=== PATIENT | female | born 1975 | race Caucasian/White ===

== ENCOUNTER 2024-06-23 11:52 | Outpatient (REF) | payer MEDICAID, SELFPAY ==
[2024-06-23 14:35] LABS: Ferritin 264 ng/mL (10-250)
[2024-06-23 14:46] LABS: Vitamin B12 1301 pg/mL (200-900)
[2024-06-24 03:59] LABS: HBS Num1 2.12 mIU/mL (0-7.99); HBc Num1 0.14 S/CO (0.00-0.79); HBsAGNum1 0.47 S/CO (0.00-0.99); Hepatitis A Antibody IgM 0.65 Index (0-0.79); Hepatitis B Core Antibody Nonreactive (Nonreactive); Hepatitis B Surface Antigen Negative (Negative); ~HepC Num1 0.12 S/CO (0.00-0.79); ~Hepatitis A Antibody IgM Nonreactive (Nonreactive); ~Hepatitis B Surface Antibody NONREACTIVE (Nonreactive); ~Hepatitis C Antibody Nonreactive (Nonreactive)
[2024-06-27 19:39] LABS: Transglutaminase Ab IgG <1.0 U/mL
[2024-06-28 03:09] LABS: Zinc 77 mcg/dL (60-130)
[2024-06-29 06:23] LABS: Vitamin A 69 mcg/dL (38-98)
[2024-06-30 12:42] LABS: Vitamin C 1.2 mg/dL (0.3-2.7)
[2024-06-30 16:04] LABS: Vitamin B1 11 nmol/L (8-30)
[2024-07-01 16:39] LABS: Vitamin B6 22.1 ng/mL (2.1-21.7)
[2024-07-01 16:44] LABS: Vitamin B5 (Pantothenic Acid) <=40 ng/mL (<275)
[2024-07-02 15:47] LABS: Nicotinamide <20 ng/mL (see note); Vit B3 - Nicotinic Acid <20 ng/mL (see note)
[2024-07-03 14:44] LABS: Hu Antibody Screen, IFA Serum NEGATIVE (NEGATIVE); Yo Antibody, Serum Screen NEGATIVE (NEGATIVE)
== END 2024-06-23 11:53 | disposition home or self-care (01) ==
LOC: HO.LAB 11:52
PROVIDERS: PCP Internal Medicine; Visit Provider Internal Medicine Gastroenterology
DX: K31.84 Gastroparesis (principal); G89.29 Other chronic pain; R10.33 Periumbilical pain
CPT/HCPCS: 36415; 82180; 82306; 82607; 82728; 82746; 84181; 84207; 84425; 84590; 84591; 84630; 86255; 86256; 86364; 86704; 86706; 86709; 86803; 87340

== ENCOUNTER 2024-06-23 11:52 | Outpatient (AMB) | payer OTHER, SELFPAY ==
[2024-06-23 11:58] VITALS: BP 106/54; PULSE 92; BMI 24.1
--- NOTE | 2024-06-23 11:58 | MHC.OFFVIS ---
Vital Signs 06/23/24 11:58 Height 5 ft 7 in Weight 153 lb 14.122 oz BMI 24.1 BP 106/54 L Blood Pressure Location Lt brachial Position Sitting Pulse 92 Intake Visit Reasons: Abnormally delayed gastric emptying/ GERD Intake Note: Patient in office today for GERD. CC: Patient states that it took her a year to get in here (GI). Per patient everything began with a cough but she went to community services coordinator and she was cleared from any lung issues. Per patient she burps a lot and it smells like there is something rotten. She also reports an abnormal gastric emptying scan, and an aborted EGD because her stomach was full of food. She has tried multiples medications without success. Allergies No Known Drug Allergies Allergy (Unknown, Verified 06/23/24 12:04) none HPI HPI Abnormally delayed gastric emptying/ GERD: Details: HPI 48 yr old f here for assessment She has hx of metastatic breast cancer--had prior XRT, mastectomy but then developed mets she has gastroparesis with GES pos 66% with EGD 12/23 with food retention she noted chronic cough which is worse in the morning she denies abdominal pain she denies blaoting, diarrhea, constipation weight went down a lot, gaining it again appetite is good tamoxifen fpc ROS: Constitutional : + Weight loss, No Fever, No Chills ENT/Mouth : No sore throat, No Rhinorrhea Eyes: No Swelling, No Redness Cardiovascular : No Chest Pain, No SOB, No Edema Respiratory : No Cough, No Sputum, No Wheezing Gastrointestinal : see HPI Genitourinary : NO Dysuria, No Urinary Frequency, No Hematuria, No Urgency Musculoskeletal : NO joint pain, No Myalgias, No Joint Swelling Skin : No Skin Lesions, No rash Neuro : No Weakness, No Numbness, No Dizziness, No Headache Psych : No Anxiety/Panic, No Depression Heme/Lymph: No Bruising, No Lymphadenopathy Endocrine : No Polyuria, No Polydipsia All other systems reviewed and are negative. 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 VITAL SIGNS:see workflow HEENT: Nonicteric sclerae, PERRLA, EOMI. Oropharynx clear. Moist mucous membranes. Conjunctivae appear well perfused. No thyroid mass. CHEST: Chest wall is nontender. HEART: Regular rate and rhythm without murmurs. LUNGS: Clear to auscultation bilaterally. ABDOMEN: Soft, positive bowel sounds, nontender, no organomegaly.no flank tenderness SKIN: No rash, no excessive bruising, petechiae, or purpura. NEUROLOGIC: Cranial nerves II-XII intact without motor/sensory deficit. Psych: normal affect A/P: 1/ Gastroparesis- prob 2/2 cancer PLAN: 1/ cont with mesopride from [facility] 2/ recommence PPI will try esomeprazole 40 mg and can titrate down over time 3/ check hep c and other labs incl nutrients, talked about gastroparesis diet 4/ EGD to exclude outlet obstruction and also will do pyloric dilation Physical Exam Vital Signs: BMI result Body Mass Index 24.1 Assessment & Plan Assessment & Plan (1) Gastroparesis: Code(s): - Gastroparesis Category: Medical Plan: see above Orders: Orders Ferritin Today K3 - Gastroparesis Vitamin B1 Today K3 - Gastroparesis Zinc Today K3 - Gastroparesis Yo Antibody Today K3. - Gastroparesis HU Antibody Today K3 - Gastroparesis Transglutaminase Ab IgG Today G89.29 - Other chronic pain, K3. - Gastroparesis, R10.33 - Periumbilical pain Vitamin B12 and Folate Today K3 - Gastroparesis Hepatitis A,B,C Profile Today K3 - Gastroparesis Vitamin D 25-OH Total Today K3 - Gastroparesis Vitamin A Today K384 - Gastroparesis Vitamin B3 (Niacin) Today K3 - Gastroparesis Vitamin B5 (Pantothenic Acid) Today K3 - Gastroparesis Vitamin B6 Today K3.84 - Gastroparesis Vitamin C Today K3.84 - Gastroparesis Medications: New esomeprazole magnesium 40 mg PO DAILY 90 caps 1RF Coding Level of Care Code New Pt Level 4 (58950) Diagnoses Gastroparesis K3
== END 2024-06-23 13:21 | disposition home or self-care (01) ==
PROVIDERS: PCP Internal Medicine; Visit Provider Internal Medicine Gastroenterology
DX: K31.84 Gastroparesis (principal)
CPT/HCPCS: 99204

== ENCOUNTER 2024-06-26 11:13 | Day surgery (SDC) | payer MEDICAID, SELFPAY ==
[2024-06-26] VITALS (7 sets, daily range): BP systolic 96–112; BP diastolic 48–70; PULSE 77–104; RESP 16–19; TEMP 36.9–37.4; O2SAT 99–100; BMI 24.0
--- NOTE | 2024-06-26 12:06 | MHC.SHP ---
Pre-Procedural Eval Section A - 24 Hr Update-Section A only Date of Service: 06/26/24 The patient is an INPATIENT: No The patient has been examined within 24 hours of the surgical procedure. The History & Physical has been completed within 30 days and I have reviewed it.: Yes Section B - Complete if H&P > 30 days Chief Complaint: Gastro-esophageal reflux disease without esophagit Allergies: Allergies Allergy/AdvReac Type Severity Reaction Status Date / Time No Known Drug Allergies Allergy Unknown none Verified 06/23/24 12:04 Plan I have reviewed the history and physical and performed a pertinent physical examination on my patient. No changes have occurred unless specified. Time Spent With Patient Time: Total time managing care of this patient today ____ minutes.
[2024-06-26 12:29] LABS: UPreg QC Valid YES; Urine Pregnancy NEGATIVE (NEGATIVE)
--- NOTE | 2024-06-26 12:32 | HO.ANESPROP2 ---
HPI - Anesthesia Eval Consult details Narrative: upper with dilatation PMFSH Active Problems Active Problems: All Active Problems Gastroparesis (Acute) Past Medical History Medical History delivery delivered Breast cancer metastasized to bone Family History Family history of problems with anesthesia: No Surgical History Surgical History Hx of right mastectomy History of Problems with Anesthesia: No Social History Social History Patient Tobacco Use Status: Current everyday Tobacco user Tobacco use type: Cigarette Cigarettes Per Day: 2 Use of substances other than those prescribed or required for medical reasons: No Are you DNR?: No Advance Directives: No Advance Directives Information Provided: Yes Meds Allergies Allergy/AdvReac Type Severity Reaction Status Date / Time No Known Drug Allergies Allergy Unknown none Verified 06/23/24 12:04 Home Medications ?Medication ?Instructions ?Recorded ?Confirmed ?Last Taken ?Type spironolactone 100 mg tablet 100 mg PO DAILY 06/23/24 06/26/24 Unknown History tamoxifen 10 mg tablet 10 mg PO DAILY 06/23/24 06/26/24 Unknown History Exam Height,Weight and Vital Signs: Height 5 ft 7 in Weight 69.4 kg Last Vital Signs Temp 99.4 F 06/26/24 12:16 Pulse 77 06/26/24 12:16 Resp 16 06/26/24 12:16 BP 103/70 06/26/24 12:16 Pulse Ox 100 06/26/24 12:16 O2 Del Method Room Air 06/26/24 12:16 Pertinent Lab Results Pertinent Lab Results: Laboratory Tests 06/26/24 12:00 Urine Test NEGATIVE Airway Mallampati Class: II TM Dist: >3cm Neck ROM: Full Heart: rrr Lungs: cta Assessment and Plan Assessment Anesthesia Assessment: Anesthesia Plan Discussed Final Anesthetic Review Family History of Problems with Anesthesia: No History of Problems with Anesthesia: No NPO: Yes ASA Class: III Final Preanesthetic Review: No Changes in Pt Med Stat, Meds/Allgs Chart Reviewed, Consent Obtained/Reviewed and Anes Risks/Benef Reviewed Patient Risk: Intermediate Procedure Risk: Low Anesthetic Plan Anesthetic Plan: MAC: Disposition: Standard PACU
--- NOTE | 2024-06-26 14:22 | W.PM.OPN ---
Operative Note Operative Note Date of Service: 06/26/24 Narrative: Procedure Description: EGD Indication: gastroparesis Anesthesia: MAC FLEXIBLE TRANSORAL UPPER GASTROINTESTINAL ENDOSCOPY UPPER ENDOSCOPY Consent: Indications for the procedure and potential complications of bleeding, perforation, reaction to medications and missed diagnosis were discussed with the patient and informed consent was obtained. Instrument: Olympus GIF H 190 J mid size upper endoscope Monitoring: Vital signs and clinical assessment, continuous EKG monitoring, Pulse oximetry, Carbon Dioxide monitoring and blood pressure monitoring were done throughout the procedure. Procedure: The patient was placed in the left lateral decubitis position and pre-procedure medications were administered and a bite block was placed. The endoscope was inserted into the mouth and advanced under direct vision to the third part of duodenum. A careful inspection was made as the upper endoscope was withdrawn including a retroflexed examination of the proximal stomach; Findings and interventions are described below. Findings: Larynx:normal Esophagus: GE junction at 44 cm, diaphragm hiatus at 44 cm, irregular Z line, bx taken, persistent oozing, in one site, one clip applied --mild esophagitis noted with patulous LES Stomach: patchy scarring and erythema . Biopsies were obtained. Grade 2 flap valve on retroflexed examination of the cardia. the pyloric outlet was dilated with wire guided balloon to 20 mm, no tears seen Duodenum: Normal bulb and descending duodenum, bx taken Intervention: Biopsies as noted above, wire guided balloon dilation pylorus Impression/Findings: gastritis esophagitis patulous GEJ PLAN: cont with PPI GERD precautions gastroparesis diet
[2024-06-26] MEDS: Albuterol/Iprat 2.5/0.5MG 3 ML AMPUL.NEB INHALE (14:48)
== END 2024-06-26 15:20 | disposition home or self-care (01) ==
PROVIDERS: Anesthesiology; PCP Internal Medicine; Visit Provider Internal Medicine Gastroenterology
PROC: 0DJ08ZZ Inspection of Upper Intestinal Tract, Via Natural or Artificial Opening Endoscopic (ICD-10-PCS; CPT 43235; principal; 2024-06-26 13:50)
DX: K31.84 Gastroparesis (principal); K29.70 Gastritis, unspecified, without bleeding; K20.80 Other esophagitis without bleeding; K22.4 Dyskinesia of esophagus; K22.9 Disease of esophagus, unspecified; K21.9 Gastro-esophageal reflux disease without esophagitis; K31.4 Gastric diverticulum; C50.919 Malignant neoplasm of unspecified site of unspecified female breast; C79.51 Secondary malignant neoplasm of bone; F17.210 Nicotine dependence, cigarettes, uncomplicated
CPT/HCPCS: 43245; 43239; 81025; 88305; 88313; 88342; C1726; J0330; J2003; J2250; J2405; J2704

== ENCOUNTER → 2024-06-26 11:13 | Outpatient (BNV) | payer MEDICAID, SELFPAY | PROVIDERS: PCP Internal Medicine; Visit Provider Internal Medicine Gastroenterology | DX: K31.84 Gastroparesis (principal); K20.90 Esophagitis, unspecified without bleeding; K29.70 Gastritis, unspecified, without bleeding; Q40.8 Other specified congenital malformations of upper alimentary tract | CPT/HCPCS: 43239; 43245 ==

== ENCOUNTER 2024-08-14 11:28 | Outpatient (REF) | payer OTHER, SELFPAY ==
[2024-08-14 13:34] LABS: Appearance Urine Clear; Color Urine Yellow; Glucose Urine UA Negative (Negative); Leukocyte Esterase Urine Negative (Negative); Nitrite Urine Negative (Negative); PH 6.5 (5.0-9.0); Specific Gravity - Urine 1.025 (1.005-1.025); Urine Blood Negative (Negative); Urine Ketones Negative (Negative); Urine Protein Trace mg/dL (Neg-Trace)
== END 2024-08-14 11:29 | disposition home or self-care (01) ==
LOC: HO.LAB 11:28
PROVIDERS: PCP Internal Medicine; Visit Provider Internal Medicine Gastroenterology
DX: R30.0 Dysuria (principal)
CPT/HCPCS: 81003

== ENCOUNTER 2024-08-14 11:28 | Outpatient (AMB) | payer OTHER, SELFPAY ==
[2024-08-14 11:34] VITALS: BP 95/70; PULSE 74; BMI 25.1
--- NOTE | 2024-08-14 11:34 | A.OFFVIS_ITS ---
Vital Signs 08/14/24 11:34 Height 5 ft 7 in Weight 160 lb 0.889 oz BMI 25.1 BP 95/70 Blood Pressure Location Lt brachial Position Sitting Pulse 74 Intake Visit Reasons: 8 week follow up Intake Note: Erich presents to in office follow up s/p EGD. CC: Patient reports diarrhea, stomach growling, and abdominal pain, nausea, and vomiting last week. She began to take Pepto Bismol and Kaopectate and yesterday did not have a BM all day. She continues to feel like there is something wrong with her stomach. Quality Assurance Representative Required: No Accompanied by: Self / Same As Patient Allergies No Known Drug Allergies Allergy (Unknown, Verified 08/14/24 11:42) none HPI HPI 8 week follow up: Details: 49 yr old f here for f/u RECAP: She has hx of metastatic breast cancer--had prior XRT, mastectomy but then developed mets she has gastroparesis with GES pos 66% with EGD 12/23 with food retention she noted chronic cough which is worse in the morning she denies abdominal pain she denies blaoting, diarrhea, constipation weight went down a lot, gaining it again appetite is good tamoxifen skilled nursing EGD 06/26/24 Findings: Larynx:normal Esophagus: GE junction at 44 cm, diaphragm hiatus at 44 cm, irregular Z line, bx taken, persistent oozing, in one site, one clip applied --mild esophagitis noted with patulous LES Stomach: patchy scarring and erythema . Biopsies were obtained. Grade 2 flap valve on retroflexed examination of the cardia. the pyloric outlet was dilated with wire guided balloon to 20 mm, no tears seen Duodenum: Normal bulb and descending duodenum, bx taken Intervention: Biopsies as noted above, wire guided balloon dilation pylorus Impression/Findings: gastritis esophagitis patulous GEJ PLAN: cont with PPI GERD precautions gastroparesis diet INTERIM: she was doing good till the last week she noted nausea and diarrhea and mid abdominal pain she tried pepto and bismuth but not that effective she had some cheese before this happened EXAM: GENERAL: The patient is well developed and nontoxic. VITAL SIGNS:see workflow HEENT: Nonicteric sclerae, PERRLA, EOMI. Oropharynx clear. Moist mucous membranes. Conjunctivae appear well perfused. No thyroid mass. CHEST: Chest wall is nontender. HEART: Regular rate and rhythm without murmurs. LUNGS: Clear to auscultation bilaterally. ABDOMEN: Soft, positive bowel sounds, tender mid abdomen, no organomegaly.no flank tenderness SKIN: No rash, no excessive bruising, petechiae, or purpura. NEUROLOGIC: Cranial nerves II-XII intact without motor/sensory deficit. Psych: normal affect A/P: 1/ Gastroparesis- prob 2/2 neoplasia 2/ suspect she might have infectious gastroenteritis PLAN: 1/ stop mesopride from [facility] meantime 2/ cont with PPI 3/ check stool tests and [facility], [facility] Medical History delivery delivered Breast cancer metastasized to bone Surgical History (Updated 08/14/24 @ 11:43 by OLIVERIO Vieira) History of esophagogastroduodenoscopy (EGD) Hx of right mastectomy Social History Patient Tobacco Use Status: Current everyday Tobacco user Tobacco use type: Cigarette Cigarettes Per Day: 2 Physical Exam Vital Signs: BMI result Body Mass Index 25.1 Assessment & Plan Assessment & Plan (1) Gastroparesis: Code(s): K31.84 - Gastroparesis Category: Medical Plan: see above Orders: Orders UA CC w/rflx Micro + Cult Today R30.0 - Dysuria GI Panel Today R19.7 - Diarrhea, unspecified CDiff Gene PCR Today R19.7 - Diarrhea, unspecified Medications: New diphenoxylate-atropine 2.5-0.025 mg (Lomotil) 1 tab PO BID PRN 10 tabs 0RF diarrhea Coding Level of Care Code Est Pt Level 3 (07098) Diagnoses Gastroparesis K31.84
== END 2024-08-14 12:18 | disposition home or self-care (01) ==
PROVIDERS: PCP Internal Medicine; Visit Provider Internal Medicine Gastroenterology
DX: K31.84 Gastroparesis (principal)
CPT/HCPCS: 99213